=== PATIENT | female | born 1960 | race Caucasian/White ===

== ENCOUNTER → 2017-05-27 | Outpatient (CLI) | payer OTHER ==
--- NOTE | 2017-05-27 15:31 | DIAGNOSTIC IMAGING REPORT ---
PROCEDURE: US KIDNEY/RENAL COMPLETE INDICATION: HEMATURIA; POST MENOPAUSAL BLEEDING TECHNIQUE: Transabdominal scans of the kidneys with calculation of resistive indices. Prevoid and postvoid bladder volumes were obtained. COMPARISON: CT of the/pelvis 06/11/2014 and renal ultrasound 02/06/2012. FINDINGS: RIGHT: Kidney measures 11.4 x 4.9 x 4.1 cm. Cortex measures 8 mm. There is a 2.9 cm upper pole simple cyst and a mid renal 1.1 cm simple cyst. No calculi or hydronephrosis. Resistive indices measure 0.72 or less. LEFT: Measures 9.4 x 5.8 x 5 cm. Cortex measures 9 mm. 1.2 cm upper pole and 1 cm lower pole simple cysts. No calculi or hydronephrosis. Resistive indices measure 0.70 or less. BLADDER: Bilateral ureteral jets visualized. Bladder has a normal appearance. Prevoid volume 413 ml, postvoid volume 15 ml. IMPRESSION: 1. Bilateral renal cortical atrophy 2. Bilateral renal cysts
--- NOTE | 2017-05-27 15:37 | DIAGNOSTIC IMAGING REPORT ---
PROCEDURE: US COMPLETE PELVIC W/TRANSVAG INDICATION: POST MENOPAUSAL BLEEDING TECHNIQUE: Transabdominal and endovaginal man scale and color Doppler sonographic images of the female pelvis were obtained. COMPARISON: CT abdomen/pelvis 06/11/2014 and pelvic ultrasound 07/06/2009. FINDINGS: TRANSABDOMINAL SCANS: Study limited by patient's body habitus. Anteverted uterus. TRANSVAGINAL SCANS: The uterus measures 5.1 x 2.8 x 3.4 cm. Myometrium is unremarkable. Endometrium measures 8.3 mm. Left ovary measures 2.6 x 2.9 x 2 cm and the right ovary is not visualized secondary to bowel gas. Small amount of free fluid the cul-de-sac. No adnexal mass. IMPRESSION: 1. Mild thickening of the endometrium. This may represent blood, hyperplasia or possibly neoplastic changes. Recommend tissue biopsy 2. Atrophic changes 3. Nonvisualization of the right ovary 4. Small amount of free fluid in the cul-de-sac.
== END ==
LOC: US SRH 12:34
DX: R31.9 Hematuria, unspecified (principal); N95.0 Postmenopausal bleeding; N28.1 Cyst of kidney, acquired; N26.1 Atrophy of kidney (terminal)